=== PATIENT | male | born 1960 | race Caucasian/White ===

== ENCOUNTER 2017-05-09 15:14 | Emergency (ER) | payer BC, OTHER ==
[2017-05-09 15:38] VITALS: RESP 20
[2017-05-09] MEDS ORDERED: LIDOCAINE HCL 2% (VISCOUS) 20 ML SOL MT ONE (15:48)
[2017-05-09] MEDS ORDERED: ALUMINUM/MAGNESIUM 30 ML SUS PO ONE (15:48)
[2017-05-09] MEDS ORDERED: ALUMINUM/MAGNESIUM 30 ML SUS ONE (15:56)
[2017-05-09] MEDS ORDERED: LIDOCAINE HCL 2% (VISCOUS) 20 ML SOL ONE (15:56)
[2017-05-09 16:00] LABS: BASOPHILS % (AUTO) 1 % (0-3); EOSINOPHILS % (AUTO) 1 % (0-9); HEMATOCRIT 26 % (39-53); MEAN CORPUSCULAR HGB CONC 36.4 gm/dl (32.0-36.0); MEAN CORPUSCULAR VOLUME 88 fL (80-100); MONOCYTES % (AUTO) 6.7 % (0-12)
[2017-05-09 16:21] LABS: POTASSIUM 4.1 mMol/L (3.5-5.1)
[2017-05-09] MEDS ORDERED: SODIUM CHLORIDE 0.9% 1000ML 1,000 ML IV ONE (16:27)
[2017-05-09 17:02] LABS: APPEARANCE,URINE CLEAR; BILIRUBIN,URINE NEGATIVE (NEGATIVE); COLOR,URINE YELLOW; GLUCOSE, URINE (UA) NEGATIVE (NEGATIVE); KETONES,URINE NEGATIVE (NEGATIVE); NITRATE,URINE NEGATIVE (NEGATIVE); OCCULT BLOOD,URINE NEGATIVE (NEG-TRACE); PH,URINE 5.5; UROBILINOGEN,URINE 0.2 (0.2-1.0 EU)
[2017-05-09 17:03] LABS: LEUKOCYTE ESTERASE ,URINE NEGATIVE (NEGATIVE); RBC,URINE NEGATIVE (0-3AV/HPF); WBC,URINE 0-1 (0-5AV/HPF)
[2017-05-09] MEDS ORDERED: DIPHENHYDRAMINE 50 MG/ML SOL IV ONE (17:03)
[2017-05-09] MEDS ORDERED: SOLUMEDROL 125 MG/2 ML 125 MG/2 ML PDS IV ONE (17:04)
[2017-05-09] MEDS ORDERED: DIPHENHYDRAMINE 50 MG/ML SOL ONE (17:18)
[2017-05-09] MEDS ORDERED: SOLUMEDROL 125 MG/2 ML 125 MG/2 ML PDS ONE (17:18)
[2017-05-09 18:10] VITALS: O2SAT 98
[2017-05-09] MEDS ORDERED: LORAZEPAM 2 MG/ML SOL IV ONE (18:13)
[2017-05-09] MEDS ORDERED: LORAZEPAM 2 MG/ML SOL ONE (18:14)
[2017-05-09 18:46] VITALS: BP 148/91; PULSE 99; TEMP 98.3
== END 2017-05-09 19:30 | disposition home or self-care (01) | DRG 379 ==
LOC: ED 15:14
DX: K92.2 Gastrointestinal hemorrhage, unspecified (principal)
CPT/HCPCS: 36415; 74177; 80053; 81001; 82272; 84484; 85025; 93005; 96365; 96374; 96375; 99284; 99285; J1200; J2060; J2930; Q9967

== ENCOUNTER 2017-05-11 10:16 | Day surgery (SDC) | payer OTHER ==
[2017-05-11 13:01] LABS: MEAN CORPUSCULAR HGB CONC 35.8 gm/dl (32.0-36.0)
[2017-05-11] MEDS ORDERED: SODIUM CHLORIDE 0.9% 250 ML 250 ML IV SCH (15:15)
[2017-05-11 16:36] LABS: ABO A; ANTIBODY SCREEN Negative; RH TYPE Positive; UNIT TYPE A POSITIVE
[2017-05-11 16:37] LABS: UNIT TYPE A POSITIVE
[2017-05-11 17:19] VITALS: RESP 16
[2017-05-11 19:35] VITALS: O2SAT 96
[2017-05-11 20:37] VITALS: BP 122/80; PULSE 63; TEMP 97.8
== END 2017-05-11 13:10 | disposition home or self-care (01) | DRG 392 ==
LOC: SURG 10:16
PROVIDERS: ATTEND Internal Medicine Gastroenterology
DX: R10.13 Epigastric pain (principal); D62 Acute posthemorrhagic anemia; K25.9 Gastric ulcer, unspecified as acute or chronic, without hemorrhage or perforation; K92.1 Melena; Q39.8 Other congenital malformations of esophagus; K44.9 Diaphragmatic hernia without obstruction or gangrene
CPT/HCPCS: 85018; 85027; 85610; 85730; 86850; 86900; 86901; 86920; J2001; J2704

== ENCOUNTER 2017-05-12 12:00 | Day surgery (SDC) | payer OTHER ==
[~2017-05-12 12:00] MED LIST: LIDOCAINE HCL 1% MPF SOL ONE; PROPOFOL 500 MG/50 ML EMU IV ONE
[2017-05-12 13:17] VITALS: O2SAT 95
[2017-05-12 13:42] VITALS: BP 127/83; PULSE 68; RESP 18; TEMP 976
== END 2017-05-12 14:08 | disposition home or self-care (01) | DRG 812 ==
LOC: SURG 12:00
PROVIDERS: ATTEND Surgery
DX: D50.0 Iron deficiency anemia secondary to blood loss (chronic) (principal); D12.0 Benign neoplasm of cecum; K57.30 Diverticulosis of large intestine without perforation or abscess without bleeding; D12.2 Benign neoplasm of ascending colon
CPT/HCPCS: 99001; J2001; J2704